=== PATIENT | male | born 1945 | race Hispanic/Latino ===

== ENCOUNTER → 2022-09-25 | Outpatient (CLI) | payer OTHER, MEDICARE ==
[2022-09-25 09:35] LABS: INR 0.94 (0.85-1.15); PROTHROMBIN TIME 10.9 SEC (9.6-11.6)
[2022-09-25 09:36] LABS: PARTIAL THROMBOPLASTIN TIME 27.9 SEC (26.3-35.5)
== END | disposition home or self-care (01) ==
LOC: RAH 08:04
PROVIDERS: ATTEND Otolaryngology Plastic Surgery within the Head & Neck
DX: E04.1 Nontoxic single thyroid nodule (principal); Z79.01 Long term (current) use of anticoagulants; Z79.899 Other long term (current) drug therapy
CPT/HCPCS: 10005; 36415; 76942; 85610; 85730

== ENCOUNTER 2024-07-31 07:42 | Day surgery (SDC) | payer OTHER, MEDICARE ==
[2024-07-27 10:59] VITALS: BP 164/81; PULSE 52; RESP 17; TEMP 97.8
[2024-07-27 11:09] LABS: BASOPHILS # (AUTO) 0.04 K/uL (0.00-0.20); BASOPHILS % (AUTO) 0.7 % (0.0-5.0); CREATININE 0.7 mg/dL (0.5-1.3); EOSINOPHILS # (AUTO) 0.22 K/uL (0.00-0.70); EOSINOPHILS % (AUTO) 4.1 % (0.0-8.0); HEMATOCRIT 39.6 % (42-54); IMMATURE GRANULOCYTE ABSOLUTE 0.02 K/uL (0-1); LYMPHOCYTES # (AUTO) 1.5 K/uL (1.0-4.8); LYMPHOCYTES % (AUTO) 28.1 % (21.0-51.0); MEAN CORPUSCULAR HEMOGLOBIN 31.1 pg (27.0-33.0); MEAN CORPUSCULAR HGB CONC 35.9 g/dL (32.0-36.0); MEAN CORPUSCULAR VOLUME 86.7 fL (79-99); MONOCYTES # (AUTO) 0.6 K/uL (0.1-1.0); MONOCYTES % (AUTO) 10.6 % (3.0-13.0); NEUTROPHILS % (AUTO) 56.1 % (40.0-77.0); PLATELET COUNT (AUTO) 246 K/uL (130-400); POTASSIUM 3.8 mmol/L (3.5-5.1); RED BLOOD CELL COUNT(AUTO) 4.57 MIL/uL (4.50-6.20); RED CELL DISTRIBUTION WIDTH 12.1 % (11.0-15.5); WHITE BLOOD COUNT (AUTO) 5.4 K/uL (4.8-10.8)
[2024-07-27 11:29] LABS: INR 0.97 (0.85-1.15); PROTHROMBIN TIME 10.3 SEC (9.6-11.6)
[2024-07-27 11:30] LABS: PARTIAL THROMBOPLASTIN TIME 27.3 SEC (26.3-35.5)
[2024-07-31] VITALS (13 sets, daily range): BP systolic 115–160; BP diastolic 62–77; PULSE 43–52; RESP 12–18; TEMP 97.3–207.1
[~2024-07-31] VITALS: Ht 162.6 cm; Wt 65.0 kg
[~2024-07-31 07:42] MED LIST: AMLO-257 PO; AMLO2.5T4 PO; ASPI-1443 PO; ATOR20TA65 PO; CHOL500051 PO; FOLI1 PO; METF-526 PO
[2024-07-31] MEDS ORDERED: GABApentin 100 MG CAPSULE ONE (09:03)
[2024-07-31] MEDS ORDERED: FAMOTIDINE 20MG VIAL IV ONE (09:03)
[2024-07-31] MEDS ORDERED: acetaMINOPHEN 100 ML ONE (09:03)
[2024-07-31] MEDS: 0.9%NACL 1000ML 1,000 ML IV ONE (10:25)
[2024-07-31] MEDS: ceFAZolin SODIUM 2 GM VIAL ONE (10:26)
[2024-07-31] MEDS ORDERED: FENTanyl CITRate PF 50 MCG/1 ML 2ML VIAL ONE (11:27)
[2024-07-31] MEDS ORDERED: proPOFol 10 MG/ML 20ML VIAL IV ONE (11:27)
[2024-07-31] MEDS ORDERED: LIDOCAINE PF 100MG/5ML (2%) SYRINGE 5ML ONE (11:27)
[2024-07-31] MEDS ORDERED: rocuRONium bROMide 10MG/1ML 5ML VL ONE (11:27)
[2024-07-31] MEDS ORDERED: ketaMINE 50MG/ML SYRINGE 50 MG/ML DISP.SYRIN ONE (11:29)
[2024-07-31] MEDS: ceFAZolin SODIUM 2 GM VIAL IVPB ONE (11:49)
[2024-07-31] MEDS ORDERED: dexaMETHasone SOD PHOSPHATE 10MG/ML 1ML VIAL ONE (12:01)
[2024-07-31] MEDS ORDERED: ondanSETRON 4MG INJ ONE (12:01)
[2024-07-31] MEDS ORDERED: BUPIvacaine/PF 0.25% 30ML VIAL IJ ONE (12:04)
[2024-07-31] MEDS ORDERED: NEOSTIGMINE METHYLSULFATE 1MG/ML IV ONE (12:20)
[2024-07-31] MEDS ORDERED: GLYCOPYRROLATE 0.2 MG/ML 5 ML VIAL ONE (12:20)
--- NOTE | 2024-07-31 14:10 | OP ---
Operative Note: DATE OF PROCEDURE: 07/31/24 SURGEON: MAXI VIVAR MD RECOVERY ENGINEER: [] ANESTHESIA: [] General ANESTHESIOLOGIST/EXTRUSION TECHNICIAN: [] PREOPERATIVE DIAGNOSIS: [] Bilateral inguinal hernia POSTOPERATIVE DIAGNOSIS: [] The same SYNOPSIS: [] PROCEDURE: [] Robotic bilateral inguinal hernia repair ESTIMATED BLOOD LOSS: [] Minimal INDICATIONS: [] DESCRIPTION OF PROCEDURE: [] With the patient prepped in usual fashion and a Dubose catheter placed we inserted the Veress needle in the left upper quadrant abdomen insufflated. Supraumbilical incision was created and a millimeter da Essence trocar was inserte d. Under direct vision I remove the needle and I placed 2 da Essence trochars 1 in each the side of the abdomen. Then we placed the patient in Trendelenburg and I docked the robot. I went to the console and observe a bilateral inguinal hernias. This seems to be of the indirect type. Using cautery I scored the peritoneum in the left side and I brought him down bluntly. I expos ed the Kieran's ligament and the indirect area I reduce a large hernia sac preserving the spermatic cords and visualizing the vas deferens and spermatic cords. The hernia was reduced without any problems. After observing the myopectineal line and the Kieran's ligament I then did the same dissection in the right side. I placed a 3 D MAX MId mid mesh on the right side and then in the left side.. This was a large one. I placed it over the Kieran's ligament covering couple centimeters below and the indirect space. The sac with the lipoma was placed over the mesh. I then closed the peritoneum with a 2 oh V-Loc in both sides.. No anchoring of the mesh was necessary. We did a closure continues and dropped the pressure to 8 cm. After this was done I remove the needle and I remove all the trochars under direct vision. The skin was closed with 4-0 Monocryl and Steri-Strips. We placed 20 cc of local anesthesia MAXI VIVAR MD July 31, 2024 14:10
== END 2024-07-31 14:55 | disposition home or self-care (01) ==
LOC: DAH 07:42
PROVIDERS: ATTEND Surgery
DX: K40.20 Bilateral inguinal hernia, without obstruction or gangrene, not specified as recurrent (principal); I10 Essential (primary) hypertension; E78.5 Hyperlipidemia, unspecified; E11.9 Type 2 diabetes mellitus without complications; J44.9 Chronic obstructive pulmonary disease, unspecified; R00.1 Bradycardia, unspecified; Z87.891 Personal history of nicotine dependence; Z87.898 Personal history of other specified conditions; Z90.49 Acquired absence of other specified parts of digestive tract; Z98.890 Other specified postprocedural states; Z79.899 Other long term (current) drug therapy; Z79.01 Long term (current) use of anticoagulants
CPT/HCPCS: 80048; 85025; 85610; 85730; 36415; 49650; 82948 ×2; A4663; J7030 ×2; A4344; A4215 ×2; J3490 ×4; J3010; J1100; J0665 ×2; J2003; J2704; J2405; J2710; J0690 ×2; C1781 ×2; A4213; A4222; A4221; A4216; A4450; A4223 ×2; A4600